=== PATIENT | male | born 1965 | race Caucasian/White ===

== ENCOUNTER 2023-12-09 09:26 | Outpatient (OUT) | payer MEDICARE, MEDICAID, SELFPAY ==
--- NOTE | 2023-12-09 09:00 | NM_ITS ---
Patient Name: JERROD HOYOS MR#: [id number] : 1965 Exam Date: 12/09/2023 Ordering Doctor: Non-Staff Physician RADIOLOGY REPORT PROCEDURE: NM VINCENT PERF SPECT REST STR COMPARISON: None. INDICATIONS: CHEST PAIN TECHNIQUE: Exam Description: Stress/Rest two day protocol gated SPECT Rest Imagin.5 mCi Tc-99m Cardiolite IV on 12/09/2023 Stress Imaging 25.6 mCi Tc-99m Cardiolite IV on 12/13/2023 Exercise Protocol: 0.4 mg Lexiscan given IV Heart Rate (bpm): Rest: 66 Max: 75 PMHR: 46 Blood Pressure: Rest: 138/82 Max: 154/82 Symptoms: Rest and peak stress ECG findings were pending and the exercise portion of the study was pending per attending physician Dr. RODRIGUEZ . For more details please see separate cardiac stress test report. FINDINGS: QUALITY OF STUDY: PERFUSION DEFECT: LOCATION: Basal inferior. Mid-inferior. Apical inferior. [place]. SIZE: Medium (3-4 segments). SEVERITY: Moderate. TYPE: Persistent. WALL MOTION: Normal. LV SIZE: Enlarged; EDV 212 mL. TID / TCD: None; 1.0 LVEF: Normal. Calculated EF 59%. SUMMARY: Myocardial perfusion imaging study has ABNORMAL findings. CONCLUSION: 1. No acute or reversible ischemia. 2. Fixed defect involving inferior wall and apex versus diaphragm attenuation artifact. A fixed defect is favored. 3. Enlarged left ventricle (212 mL) with heterogeneous irregular radiotracer uptake throughout the myocardium during stress and rest imaging. 4. Normal wall motion and ejection fraction. Dictated by: Orlando Jaquez M.D. on 12/14/2023 at 12:09 Approved by: Orlando Jaquez M.D. on 12/14/2023 at 12:17
== END 2023-12-09 09:27 | disposition home or self-care (01) ==
LOC: NM 09:27
PROVIDERS: PCP Family Medicine
DX: R07.9 Chest pain, unspecified (principal)
CPT/HCPCS: 78452; A9500

== ENCOUNTER 2023-12-13 09:16 | Outpatient (OUT) | payer MEDICARE, MEDICAID, SELFPAY ==
--- NOTE | 2023-12-13 | PCN_ITS ---
CARDIAC STRESS TEST Requesting Physician: Procedure Date: 12/13/2023 This was a Lexiscan stress test with myocardial perfusion imaging performed at the [facility] on 12/13/2023. Informed consent was obtained. An intravenous line was secured. Baseline vital signs were obtained and the patient was attached to electrocardiographic monitoring. Lexiscan 0.4 mg was administered intravenously, followed by administration of Cardiolite. The patient then went on to obtain myocardial perfusion imaging. Resting heart rate was 66 BPM and maximum heart rate was 75 BPM. The resting blood pressure was 138/82 and maximum blood pressure was 154/82. Resting ECG showed sinus rhythm with first degree AV block. There were non- specific T-wave abnormalities seen. ECG following infusion of Lexiscan showed evidence of sinus rhythm without ischemic ST changes. Final ECG was comparable to baseline. IMPRESSION: 1. No evidence of ischemic ECG changes following infusion of Lexiscan. 2. Myocardial perfusion images will be reported separately. MTDD
[2023-12-13] MEDS: REGADENOSON 0.4 MG/5 ML SYRINGE 0.400000000000000022 MG IV (10:18)
== END 2023-12-13 09:17 | disposition home or self-care (01) ==
LOC: CARD 09:18
PROVIDERS: PCP Family Medicine
DX: R07.9 Chest pain, unspecified (principal)
CPT/HCPCS: 93017; J2785